=== PATIENT | male | born 1995 | race Caucasian/White ===

== ENCOUNTER 2018-03-24 08:38 | Emergency (ER) | payer OTHER ==
[2018-03-24 08:52] VITALS: BP 132/72
--- NOTE | 2018-03-24 08:57 | ED Physician Documentation ---
PD HPI URI - Stated complaint Stated Complaint: FEVER/HEADACHE - Chief complaint Chief Complaint: Fever - History obtained from History obtained from: Patient - History of Present Illness Timing - onset: How many days ago (3) Timing duration: Days (3) Timing details: Gradual onset Pain level max: 5 Associated symptoms: Fever, Chills. No: Nasal congestion, Rhinorrhea, Dry cough, Hemoptysis, Dyspnea, NVD Contributing factors: Sick contact (works on the [place]) Improves by: Medication (advil) Worsened by: Other (nothing) Similar symptoms before: Has not had sx before Recently seen: Not recently seen - Additional information Additional information: fell off a ladder at work and bruised the L hip/thigh 5 days ago Review of Systems Constitutional: reports: Fever, Chills Musculoskeletal: denies: Neck pain, Back pain Neurologic: reports: Headache (intermittent, worse yesterday, no headache now). denies: Focal weakness, Numbness PD PAST MEDICAL HISTORY - Past Medical History Past Medical History: No - Past Surgical History Past Surgical History: No - Allergies Allergies/Adverse Reactions: Allergies Allergy/AdvReac Type Severity Reaction Status Date / Time No Known Drug Allergies Allergy Verified 03/24/18 08:52 - Living Situation Living Situation: reports: With family Living Arrangement: reports: At home - Social History Does the pt smoke?: No Does the pt have substance abuse?: No PD ED PE NORMAL - Vitals Vital signs reviewed: Yes - General General: Alert and oriented X 3, No acute distress - HEENT HEENT: Ears normal, Moist mucous membranes, Pharynx benign - Neck Neck: Supple, no meningeal sign, No adenopathy - Cardiac Cardiac: RRR, Strong equal pulses - Respiratory Respiratory: No respiratory distress, Clear bilaterally - Abdomen Abdomen: Soft, Non tender, Non distended - Derm Derm: Warm and dry - Extremities Extremities: Other (mild ecchymosis and abrasion over the L hip. no bony tenderness. NVI. No signs of infection. no crepitus) - Neuro Neuro: Alert and oriented X 3 Results - Vitals Vitals: Vital Signs - 24 hr 03/24/18 08:50 Temperature 35.9 C L Heart Rate 75 Respiratory 16 Rate Blood Pressure 132/72 H O2 Saturation 97 Oxygen O2 Source Room air - Labs Labs: Laboratory Tests 03/24/18 08:55 Influenza A (Rapid) Negative Influenza B (Rapid) Negative PD MEDICAL DECISION MAKING - ED course Complexity details: reviewed results, re-evaluated patient, considered differential, d/w patient ED course: Patient is a 22-year-old male who presents to the emergency department with what appears to be a viral syndrome. Influenza swab was negative. He is well- appearing, nontoxic. Afebrile. We will continue supportive care at home and follow-up closely with his doctor. Also has a left hip contusion, no evidence of fracture or secondary infection. Patient counseled regarding signs and symptoms for which I believe and urgent re-evaluation would be necessary. Patient with good understanding of and agreement to plan and is comfortable going home at this time This document was made in part using voice recognition software. While efforts are made to proofread this document, sound alike and grammatical errors may occur. Departure - Departure Disposition: 01 Home, Self Care Clinical Impression: Viral syndrome Condition: Good Instructions: ED Viral Syndrome Follow-Up: your,doctor in 1 week if not better [Other] Comments: Drink plenty of fluids and rest. Return if you worsen. Your flu swab is negative today. Forms: Activity restrictions
== END 2018-03-24 09:29 | disposition home or self-care (01) ==
LOC: ED 08:38
DX: B34.9 Viral infection, unspecified (principal); W11.XXXA Fall on and from ladder, initial encounter; S70.02XA Contusion of left hip, initial encounter
CPT/HCPCS: 87275; 87276; 99282; 99283